=== PATIENT | female | born 1940 | race Caucasian/White ===

== ENCOUNTER 2017-09-19 12:28 | Inpatient (IN) ==
[2017-09-19 13:12] LABS: Basophils # (Auto) 0 K/mcL (0.0-0.3); Basophils % (Auto) 0.4 % (0.0-2.0); Eosinophils # (Auto) 0.2 K/mcL (0.0-0.7); Granulocytes % (Auto) 62.9 % (38.0-78.0); Lymphocytes # (Auto) 3.3 K/mcL (1.5-4.8); Lymphocytes % (Auto) 27.4 % (15.5-49.0); Mean Cell Volume 95.4 fL (80.0-100.0); Mean Corpuscular Hemoglobin 32.4 pg (26.0-34.0); Monocytes # (Auto) 0.9 K/mcL (0.1-0.9); Monocytes % (Auto) 7.3 % (1.0-12.0); Platelet Count 142 K/mcL (140-440); RBC 3.44 M/mcL (4.00-5.20)
--- NOTE | 2017-09-19 13:22 | Emergency Department Note ---
General Adult HPI - General Chief complaint: Shortness of Breath/Dyspnea Stated complaint: Abscess to right side of neck Time Seen by Provider: 09/19/17 13:20 Source: patient Mode of arrival: ambulatory Limitations: no limitations - History of Present Illness HPI Narrative: 76-year-old female presents to the emergency Department today with swelling of the right cheek that began Thursday September 14, 2017. She reports that the area is a small lump and then grew in size by Saturday. She saw Dr. Tommy Lopez and a facial CT was done that showed Sialsis and mild inflammation of the right parotid gland. She was started on amoxicillin and referred to see ENT. She saw Dr. Tamayo, ENT and also has seen a dentist who ruled out dental abscess. Dr. Tamayo attempted an aspiration yesterday, but was not able to aspirate fluid. She began on oral clindamycin and has currently taken 3 doses. She spoke with Dr. Tamayo today after she noticed even more swelling and pain that she was and instructed to go to the emergency department. She denies any fevers or chills. She states that the area is warm to the touch, tender, and her mouth feels dry. She reports that it is slightly difficult to swallow due to the amount of swelling. She denies difficulty breathing, but states that she does have a history of COPD and occasionally feels short of breath. - Related Data Home Medications Medication Instructions Recorded Confirmed Aspirin [[place] Aspirin] 81 mg PO DAILY 09/15/14 09/16/17 Cyanocobalamin (Vitamin B-12) 1,000 mcg SL DAILY 09/15/14 09/16/17 [Vitamin B-12] Fish Oil 2,000 mg PO TID 09/15/14 09/16/17 Vitamin D3 5,000 unit PO MOWEFR@0900 09/15/14 09/16/17 Acetaminophen [Acetaminophen Extra 500 mg PO Q6HP PRN 11/17/15 09/16/17 Strength] Allopurinol [Zyloprim] 200 mg PO DAILY 11/17/15 09/16/17 Bumetanide [Bumex] 1 mg PO DAILY 11/17/15 09/16/17 HYDROcodone/APAP 5/325MG [[place] 1 tab PO BIDP PRN 11/17/15 09/16/17 5-325Mg] LORazepam [Ativan] 0.5 mg PO Q4HP PRN 11/17/15 09/16/17 Mirtazapine [Remeron] 15 mg PO HS 11/17/15 09/16/17 Venlafaxine HCl [Venlafaxine HCl 37.5 mg PO QDAY 11/17/15 09/16/17 ER] Carvedilol [Coreg] 6.25 mg PO BIDCC 07/23/16 09/16/17 Insulin Aspart [Novolog] 5 unit SQ AC 07/23/16 09/16/17 Losartan [Cozaar] 12.5 mg PO DAILY 07/23/16 09/16/17 Omeprazole [Prilosec] 20 mg PO ACB 12/18/16 09/16/17 Insulin Glargine,Hum.rec.anlog 55 unit SQ BID 02/19/17 09/16/17 [Basaglar Kwikpen U-100] Magnesium 143 mg PO DAILY 02/19/17 09/16/17 Donepezil [Aricept] 5 mg PO DAILY 03/13/17 09/16/17 Calcium Adult Gummies 2 tablet PO DAILY 04/23/17 09/16/17 Sennosides [Senna] 8.6 mg PO HS 04/23/17 09/16/17 Allergies Allergy/AdvReac Type Severity Reaction Status Date / Time Aminoglycosides Allergy Severe ITCHING/BLI Verified 09/19/17 12:28 STERS Sulfa (Sulfonamide Allergy Severe Difficulty Verified 09/19/17 12:28 Antibiotics) Breathing [SULFA (SULFONAMIDE ANTIBIOTICS)] quinapril Allergy Intermediate ITCHING Verified 09/19/17 12:28 Streptomycin [STREPTOMYCIN] Allergy Intermediate SWELLING, Verified 09/19/17 12: 28 HEART PALPITATIONS baclofen AdvReac Intermediate Sedation Verified 09/19/17 12:28 risperidone [From RISPERDAL] AdvReac Intermediate PASS OUT Verified 09/19/17 12: 28 Review of Systems Review of Systems: Except as noted in the HPI, a Review of Systems was found to be negative. Specifically: Constitutional: No chronic fatigue, unexplained weight gain, or weight loss. Eyes: No visual impairment, no pain, watering, discharge, or itching. ENT: No ear or sinus infections. No reoccurring nosebleeds, no chronic nasal congestion. Respiratory: No wheezing, dyspnea on exertion, or chronic cough. CV: No chest pain, cyanosis, palpitations, dizziness, or fainting. Musculoskeletal: No muscle pain or weakness, no joint pain or limitations. Neurologic: No headache, weakness, numbness, dizziness, or seizures. Endocrine: No hot or cold intolerances, excessive sweating, excessive thirst, or frequent urination. Hematologic/lymphatic: No blood disorder. No swollen lymph nodes. Integumentary: No problem with rashes, eczema, changing of skin lesions. No nail abnormalities. All systems ED: reviewed and negative except as stated. Past Medical History - Past Medical History Medical history: Reports: arthritis, asthma, CHF, coronary artery disease, DM, GERD, kidney stones, myocardial infarction, renal disease, other (Diverticulitis , chronic constipation, left bundle branch block) Surgical history ED: Reports: non-contributory - Social History smoking status: Never smoker Alcohol use: Reports: Occasionally Drug use: Reports: none Physical Exam Limitations: no limitations General appearance: alert, in no apparent distress ENT: other (Mucous membranes are dry. There is a large firm and tender mass palpated over the right cheek approximately 6 cm x 6 cm mass. The right Parotid gland seen and when pressed with a tongue depressor some small amount of serosanguineous drainage was seen from the parotid gland. Ear canals are clear and tympanic membranes opaque. Trachea midline. No lymphadenopathy. External ear examination normal. No nasal congestion and nasal turbinates are pink without swelling.) Neck: Present: full ROM, trachea midline. Absent: thyromegaly Chest: Present: normal inspection Respiratory: Present: normal lung sounds bilaterally Cardiovascular: Present: regular rate, normal rhythm, +S1, +S2 Extremities: Present: pedal edema (1+ bilateral lower Extremities) Neurological: Present: alert, oriented X3 Psychiatric: Present: normal affect, normal mood Skin: Present: warm, dry, intact, normal color Course Vital Signs Temperature 98.0 F 09/19/17 12:28 Pulse Rate 83 09/19/17 12:28 Respiratory Rate 18 09/19/17 12:28 Blood Pressure 164/101 09/19/17 12:28 Pulse Oximetry (%) 92 09/19/17 12:28 Temperature 98.0 F 09/19/17 12:28 Pulse Rate 70 09/19/17 13:51 Respiratory Rate 18 09/19/17 13:09 Blood Pressure 136/70 09/19/17 13:51 Pulse Oximetry (%) 90 09/19/17 13:51 Medical Decision Making - MDM Narrative Medical decision making narrative: CT scan obtained and spoke with radiologist, Dr. Whitfield did not see an abscess or stone. Spoke with Dr. Tamayo and Dr. Abdalla who both agreed no drainage would be needed at this time and patient would benefit from IV antibiotics and inpatient stay for IV antibiotics and monitoring. Spoke with the hospitalist, and report given to Dr. Saenz. Patient will be admitted to [facility]. - Lab Data Lab results reviewed: Yes I reviewed the patient's lab results. Result diagrams: 09/19/17 12:50 09/19/17 12:50 Lab Results 09/19/17 09/19/17 09/19/17 Range/Units 12:50 12:50 13:27 WBC 12.1 H (4.5-11.0) K/mcL RBC 3.44 L (4.00-5.20) M/mcL Hgb 11.2 L (12.0-15.0) g/dL Hct 32.8 L (36.0-48.0) % POC Hct (36.0-48.0) % MCV 95.4 (80.0-100.0) fL MCH 32.4 (26.0-34.0) pg MCHC 34.0 (31.0-36.0) g/dL RDW 16.0 H (11.5-14.5) % Plt Count 142 (140-440) K/mcL MPV 8.7 (7.4-10.4) fL Gran % 62.9 (38.0-78.0) % Lymph % (Auto) 27.4 (15.5-49.0) % [place] % (Auto) 7.3 (1.0-12.0) % Eos % (Auto) 2.0 (0.0-7.0) % Baso % (Auto) 0.4 (0.0-2.0) % Gran # 7.6 (1.8-8.0) K/mcL Lymph # (Auto) 3.3 (1.5-4.8) K/mcL [place] # (Auto) 0.9 (0.1-0.9) K/mcL Eos # (Auto) 0.2 (0.0-0.7) K/mcL Baso # (Auto) 0 (0.0-0.3) K/mcL VBG Lactic Acid 1.0 (0.5-2.2) mmol/L POC Sodium (133-145) mmol/L Sodium 136 (133-145) mmol/L POC Potassium (3.3-5.1) mmol/L Potassium 3.2 L (3.3-5.1) mmol/L POC Chloride (96-108) mmol/L Chloride 91 L (96-108) mmol/L Carbon Dioxide 33 H (22-30) mmol/L POC Total CO2 (22-30) mmol/L Anion Gap 12.0 (8-16) POC BUN (8-23) mg/dl BUN 28 H (8-23) mg/dl Creatinine 1.5 H (0.6-1.1) mg/dl POC Creatinine (0.6-1.1) mg/dl GFR Calculation 33 Glucose 178 H (70-105) mg/dL POC Glucose (70-105) mg/dL Calcium 9.3 (8.6-10.4) mg/dl POC WB Ioniz Calcium (1.16-1.32) mmol/L Total Bilirubin 0.8 (0.0-1.0) mg/dL AST 24 (0-37) U/l ALT 20 (0-40) U/l Alkaline Phosphatase 86 (39-117) U/L Total Protein 7.1 (5.9-8.4) gm/dL Albumin 3.8 (3.2-5.2) gm/dL Globulin 3.3 (2.2-3.7) gm/dL Albumin/Globulin Ratio 1.2 (1.0-2.3) /10/29 Range/Units 13:27 WBC (4.5-11.0) K/mcL RBC (4.00-5.20) M/mcL Hgb (12.0-15.0) g/dL Hct (36.0-48.0) % POC Hct 29.0 L (36.0-48.0) % MCV (80.0-100.0) fL MCH (26.0-34.0) pg MCHC (31.0-36.0) g/dL RDW (11.5-14.5) % Plt Count (140-440) K/mcL MPV (7.4-10.4) fL Gran % (38.0-78.0) % Lymph % (Auto) (15.5-49.0) % [place] % (Auto) (1.0-12.0) % Eos % (Auto) (0.0-7.0) % Baso % (Auto) (0.0-2.0) % Gran # (1.8-8.0) K/mcL Lymph # (Auto) (1.5-4.8) K/mcL [place] # (Auto) (0.1-0.9) K/mcL Eos # (Auto) (0.0-0.7) K/mcL Baso # (Auto) (0.0-0.3) K/mcL VBG Lactic Acid (0.5-2.2) mmol/L POC Sodium 137 (133-145) mmol/L Sodium (133-145) mmol/L POC Potassium 3.1 L (3.3-5.1) mmol/L Potassium (3.3-5.1) mmol/L POC Chloride 91 L (96-108) mmol/L Chloride (96-108) mmol/L Carbon Dioxide (22-30) mmol/L POC Total CO2 34 H (22-30) mmol/L Anion Gap (8-16) POC BUN 29 H (8-23) mg/dl BUN (8-23) mg/dl Creatinine (0.6-1.1) mg/dl POC Creatinine 1.6 H (0.6-1.1) mg/dl GFR Calculation Glucose (70-105) mg/dL POC Glucose 165 H (70-105) mg/dL Calcium (8.6-10.4) mg/dl POC WB Ioniz Calcium 1.15 L (1.16-1.32) mmol/L Total Bilirubin (0.0-1.0) mg/dL AST (0-37) U/l ALT (0-40) U/l Alkaline Phosphatase (39-117) U/L Total Protein (5.9-8.4) gm/dL Albumin (3.2-5.2) gm/dL Globulin (2.2-3.7) gm/dL Albumin/Globulin Ratio (1.0-2.3) - Radiology Data Radiology results reviewed: Yes I reviewed the patient's radiology results. Disposition Pt seen by CLIENT SERVICES ASSISTANT/PA only: Yes Clinical Impression: Parotitis Disposition: Xfer As Inpt ([facility]) Condition: Fair Referrals: Anjana Hennessy ARNP [Primary Care Provider] -
[2017-09-19] MEDS ORDERED: 0.9 % SODIUM CHLORIDE 1,000 ML IV ONE (13:26)
[2017-09-19 13:34] LABS: ALT/SGPT 20 U/l (0-40); Albumin 3.8 gm/dL (3.2-5.2); Albumin/Globulin Ratio 1.2 (1.0-2.3); Alkaline Phosphatase 86 U/L (39-117); Blood Urea Nitrogen 28 mg/dl (8-23)
--- NOTE | 2017-09-19 14:16 | Cat Scan Report ---
History: Painful lump in the right side of the face and neck. TECHNIQUE: The neck was imaged without contrast from the pituitary sella to the aortic arch without IV contrast. Sagittal and coronal reformats created. Patient has poor renal function. Therefore IV contrast was not administered. IMPRESSION: There is marked enlargement and inflammation in the right parotid gland. Is also inflammation of the surrounding fat. There is no evidence of a mass or abscess in or adjacent to the parotid. The parotid duct is larger than the left but does not appear to be abnormally dilated. There are no stones within the duct. Left parotid gland is replaced with fat. The submandibular glands are nearly symmetric and normal in size. There is a 2 mm calcification along the anterior inferior border of the right submandibular gland. The duct is nondilated. There are a few small lymph nodes in the neck of both sides which are less than 1 cm in size. The oral cavity, pharynx and larynx appear normal. There is no airway compromise. The thyroid is normal in size and homogeneous. Few scattered plaques are seen in the carotid bifurcation bilaterally. Severe disc space narrowing is present at C5-6 and there is moderate narrowing at C3-4. 4 mm grade 1 spondylolisthesis is present at C4-5 due to arthritis in the facets. This is causing low-grade central canal stenosis. IMPRESSION: Right-sided parotiditis Interpreted and Authenticated by: Nolberto Rivas 09/19/17
--- NOTE | 2017-09-19 15:53 | Internal Med History&Physical ---
Medical - H&P: HPI Patient information: Note initiated : 09/19/17 at 3:49 pm Service Date, if different from initiated Date: [] Patient: Samira Wilson a 76 y/o F admitted on for Abscess to right side of neck. Chief Complaint: [] History of present illness: Ms. Wilson is a 76 year old F with history of diabetes and multiple medical issues presents to the emergency room today for evaluation of swelling on the right side of the cheek. According to the patient she noticed swelling on the right side of cheek I believe on Saturday last week got worse on Saturday. She was evaluated for same on Saturday and put on oral antibiotic amoxicillin or Augmentin. The patient's swelling continued to worsen. The pain continued to get worse. Pain was worse with movement throbbing sharp in nature. The patient was seen by ENT specialist, antibiotics were switched to clindamycin orally the patient's swelling continued to get worse. They have been tried to aspirate for any possible abscess however they were unable to see her aspirate anything. Since the patient's swelling continued to get worse on clindamycin patient was advised to come to the emergency room for further evaluation. The patient has some odynophagia, she is weak but denies any shortness of breath or wheezing. There is definitely swelling on the right side of the face but denies any facial weakness. The patient has had exposure to individual with MUMPS, but denies any h/o same, denies any MMR vaccination. she denies any recent known exposure to individual with mumps In the emergency room patient was hemodynamically stable, afebrile blood pressure heart rate stable she was on 2-3 L of oxygen which she uses at home when she sleeps. She denies any history of COPD but notes that she has been given oxygen for use when she sleeps because of her cardiopulmonary status. The patient has elevated WBC count at 12,000, neutrophils are 62%, hemoglobin 11.2, platelets 142. Sodium 136, potassium 3.2 bicarbonate 33 creatinine 1[address] scan of the neck was done without contrast, there was swelling of the parotid gland without any abscess, slight swelling of the parotid duct but no stones. I reviewed the case with the radiologist who felt that an ultrasound will not add any value given that he is certain there is no abscess. Given that the patient's swelling has progressed, she has been outpatient antibiotic therapy she is being admitted to the hospital for further management. All systems: reviewed and no additional remarkable complaints except as stated ( as per HPI rest negative) Medical - H&P: PMH Medical history: HTN HLD DM Afib, s/p pacemaker, AICD Obesity Osteoarthritis OSIRIS with CPAP afib h/o CHF Surgical history: Multiple joint surgery AICD/Pacemaker Family history: reviewed and not pertinent Social history: non smoker, no etoh no recreational substance use Medical - H&P: Meds Home Medications Medication Instructions Recorded Confirmed Type Aspirin [[place] Aspirin] 81 mg PO DAILY 09/15/14 09/19/17 History Cyanocobalamin (Vitamin B-12) 1,000 mcg SL DAILY 09/15/14 09/19/17 History [Vitamin B-12] Fish Oil 2,000 mg PO TID 09/15/14 09/19/17 History Vitamin D3 5,000 unit PO MOWEFR@0900 09/15/14 09/19/17 History Acetaminophen [Acetaminophen Extra 500 mg PO Q6HP PRN 11/17/15 09/19/17 History Strength] Allopurinol [Zyloprim] 200 mg PO DAILY 11/17/15 09/19/17 History Bumetanide [Bumex] 1 mg PO DAILY 11/17/15 09/19/17 History HYDROcodone/APAP 5/325MG [[place] 1 tab PO BIDP PRN 11/17/15 09/19/17 History 5-325Mg] LORazepam [Ativan] 0.5 mg PO Q4HP PRN 11/17/15 09/19/17 History Mirtazapine [Remeron] 15 mg PO HS 11/17/15 09/19/17 History Venlafaxine HCl [Venlafaxine HCl 37.5 mg PO QDAY 11/17/15 09/19/17 History ER] Carvedilol [Coreg] 6.25 mg PO BIDCC 07/23/16 09/19/17 History Insulin Aspart [Novolog] 5 unit SQ AC 07/23/16 09/19/17 History Losartan [Cozaar] 12.5 mg PO DAILY 07/23/16 09/19/17 History Omeprazole [Prilosec] 20 mg PO ACB 12/18/16 09/19/17 History Insulin Glargine,Hum.rec.anlog 55 unit SQ BID 02/19/17 09/19/17 History [[facility] U-100] Magnesium 143 mg PO DAILY 02/19/17 09/19/17 History Donepezil [Aricept] 5 mg PO DAILY 03/13/17 09/19/17 History Calcium Adult Gummies 2 tablet PO DAILY 04/23/17 09/19/17 History Sennosides [Senna] 8.6 mg PO HS 04/23/17 09/19/17 History Allergies Allergy/AdvReac Type Severity Reaction Status Date / Time Aminoglycosides Allergy Severe ITCHING/BLI Verified 09/19/17 12:28 STERS Sulfa (Sulfonamide Allergy Severe Difficulty Verified 09/19/17 12:28 Antibiotics) Breathing [SULFA (SULFONAMIDE ANTIBIOTICS)] quinapril Allergy Intermediate ITCHING Verified 09/19/17 12:28 Streptomycin [STREPTOMYCIN] Allergy Intermediate SWELLING, Verified 09/19/17 12: 28 HEART PALPITATIONS baclofen AdvReac Intermediate Sedation Verified 09/19/17 12:28 risperidone [From RISPERDAL] AdvReac Intermediate PASS OUT Verified 09/19/17 12: 28 Medical - H&P: Exam - Constitutional Vitals: Temp Pulse Resp BP Pulse Ox 98.0 F 64 18 118/72 97 09/19/17 15:34 09/19/17 15:34 09/19/17 15:34 09/19/17 15:34 09/19/17 15:34 Exam: GENERAL: The patient is a well-developed, well-nourished in no apparent distress. Is alert and oriented x3. VITAL SIGNS: Reviewed and as noted elsewhere. HEENT: Head is normocephalic and atraumatic. Extraocular muscles are intact. Pupils are equal, round, and reactive to light. Nares appeared normal. Oral mucosa dry, Right side of the face is swollen, in the angle of the mandible, setending upto the ear, tender to touch firm. no fluctuation. mild erythema noted. Oral mucosa , no faviola duct discharged noted. NECK: Normal to inspection, Supple, No lymphadenopathy or thyromegaly. except as above LUNGS: Air entry equal on both sides, no wheezing, crackles or rhonchi noted. No accessory muscles of respiration HEART: Regular rate and rhythm normal, S1 and S2 heard, no Gallop, S3 or Rub Noted, No Gross murmur heard. ABDOMEN: Soft, nontender, and nondistended. Positive bowel sounds. No hepatosplenomegaly was noted. large pannus EXTREMITIES: No cyanosis, clubbing, rash, lesions or edema. NEUROLOGIC: Cranial nerves II through XII are grossly intact. Motor and Sensory System Grossly Intact PSYCHIATRIC: Normal affect, Normal Mood. Appropriate Behavior. SKIN: No ulceration or wounds noted, No jaundice, No rash noted. Medical - H&P: Reslt - Labs CBC & Chem 7: 09/19/17 12:50 09/19/17 12:50 Labs: Short CBC 09/19/17 Range/Units 12:50 WBC 12.1 H (4.5-11.0) K/mcL Hgb 11.2 L (12.0-15.0) g/dL Hct 32.8 L (36.0-48.0) % Plt Count 142 (140-440) K/mcL BMP 09/19/17 12:50 Sodium 136 Potassium 3.2 L Chloride 91 L Carbon Dioxide 33 H BUN 28 H Creatinine 1.5 H Glucose 178 H Calcium 9.3 Liver Function 09/19/17 Range/Units 12:50 Total Bilirubin 0.8 (0.0-1.0) mg/dL AST 24 (0-37) U/l ALT 20 (0-40) U/l Alkaline Phosphatase 86 (39-117) U/L Albumin 3.8 (3.2-5.2) gm/dL Medical - H&P: A/P - Narrative A/P Narrative: A/P Acute bacterial Parotiditis-patient likely has acute bacterial parotiditis, no evidence of abscess on CT scan. IV vancomycin and Zosyn to be started. She has failed amoxicillin and clindamycin as outpatient. If the patient swelling worsens will repeat the scan preferably an ultrasound to evaluate for any abscess and consider aspiration. She has been seen by ENT in the [place]. At this time given that there is no surgical drainage necessary I will hold off on consulting them. Patient has patent respiratory tract, no significant obstruction of oropharynx noted. There is no stridor on exam. I will consult ENT showed any of this change. The patient has mild leukocytosis with normal neutrophil differentiation, she has not had history of mumps. I will check IgM for mumps Atrial fib- rate controlled, on aicd and pacemaker, no anticoagulation, on asa, conintue same CHF- clinically euvolumic, hold diuretics for now, resume same once patient is stable. HTN- resume home bp medications, monitor bp, DM- resume lantus, 55 units bid, ssi sliding scale. OSIRIS- cpap at night, 3 L oxygen as home dose Hypokalemia- replace CKD- creat near baseline, creat is 1.5 for now, monitor, will maintain good hydration status. DVT hep sq Diet carb consistent Full code.
[2017-09-19] MEDS ORDERED: HYDROmorphone 2 MG/ML VIAL IV PRN (16:16)
[2017-09-19] MEDS ORDERED: ONDANSETRON 4 MG/2 ML VIAL IV PRN (16:16)
[2017-09-19] MEDS ORDERED: VANCOMYCIN PER PHARMACY IV SCH (16:16)
[2017-09-19] MEDS ORDERED: oxyCODONE/APAP 5/325MG TABLET PO PRN (16:16)
[2017-09-19] MEDS ORDERED: NALOXONE HCL 0.4 MG/ML VIAL IV PRN (16:16)
[2017-09-19] MEDS ORDERED: LORazepam 0.5 MG TABLET PO PRN (16:16)
[2017-09-19] MEDS ORDERED: DEXTROSE 50% 50 ML VIAL IV PRN (16:18)
[2017-09-19] MEDS ORDERED: DEXTROSE 31 GM ORAL.SUSP PO PRN (16:18)
[2017-09-19] MEDS ORDERED: POTASSIUM CHLORIDE 40 MEQ in DEXTROSE 5% IN WATER 500 ML IV ONE (17:00)
[2017-09-19] MEDS: INSULIN LISPRO 1 UNIT/0.01 ML UNIT SQ SCH ×2 (17:18→22:10)
[2017-09-19] MEDS: VANCOMYCIN 1,500 MG in 0.9 % SODIUM CHLORIDE 500 ML IV SCH (17:44)
[2017-09-19] MEDS: CARVEDILOL 6.25 MG TABLET PO SCH (17:48)
[2017-09-19] MEDS: ACETAMINOPHEN 325 MG TABLET PO PRN (19:40)
[2017-09-19] MEDS: PIPERACILLIN SODIUM/TAZOBACTAM 3.375 GM in DEXTROSE 5% IN WATER 50 ML IV SCH (19:42)
[2017-09-19] MEDS ORDERED: SENNOSIDES 1 TABLET PO SCH (21:00)
[2017-09-19] MEDS: SENNOSIDES 1 TABLET PO SCH (22:12)
[2017-09-19] MEDS: MIRTAZAPINE 15 MG TABLET PO SCH (22:12)
[2017-09-19] MEDS: FISH OIL 1,000 MG CAPSULE PO SCH (22:12)
[2017-09-19] MEDS: 0.9 % SODIUM CHLORIDE 10 ML SYRINGE IV SCH ×2 (22:15→23:10)
[2017-09-19] MEDS: INSULIN GLARGINE, HUMAN 1 UNIT/0.01 ML SQ SCH (22:21)
[2017-09-20] MEDS: PIPERACILLIN SODIUM/TAZOBACTAM 3.375 GM in DEXTROSE 5% IN WATER 50 ML IV SCH ×5 (00:11→23:11)
[2017-09-20] MEDS: 0.9 % SODIUM CHLORIDE 10 ML SYRINGE IV SCH ×4 (01:01→21:25)
[2017-09-20 06:21] LABS: Basophils # (Auto) 0.1 K/mcL (0.0-0.3); Basophils % (Auto) 0.5 % (0.0-2.0); Eosinophils # (Auto) 0.4 K/mcL (0.0-0.7); Eosinophils % (Auto) 3.5 % (0.0-7.0); Granulocytes % (Auto) 56.7 % (38.0-78.0); Lymphocytes # (Auto) 3.3 K/mcL (1.5-4.8); Lymphocytes % (Auto) 30.9 % (15.5-49.0); Mean Cell Volume 95.6 fL (80.0-100.0); Mean Corpuscular Hemoglobin 32.6 pg (26.0-34.0); Monocytes # (Auto) 0.9 K/mcL (0.1-0.9); Monocytes % (Auto) 8.4 % (1.0-12.0); Platelet Count 129 K/mcL (140-440); RBC 3.06 M/mcL (4.00-5.20); Red Cell Distribution Width 15.8 % (11.5-14.5)
[2017-09-20 06:45] LABS: ALT/SGPT 16 U/l (0-40); Albumin 3.2 gm/dL (3.2-5.2); Albumin/Globulin Ratio 1.1 (1.0-2.3); Alkaline Phosphatase 73 U/L (39-117); Bilirubin,Direct < 0.2 mg/dL (0.0-0.3); Blood Urea Nitrogen 27 mg/dl (8-23); Gamma Glutamyl Transpeptidase 45 U/L (5-36); Uric Acid 7.5 mg/dL (2.5-8.0)
[2017-09-20] MEDS ORDERED: POTASSIUM CHLORIDE 20 MEQ PACKET PO ONE (06:45)
[2017-09-20] MEDS: INSULIN LISPRO 1 UNIT/0.01 ML UNIT SQ SCH ×4 (07:48→21:15)
[2017-09-20] MEDS: CARVEDILOL 6.25 MG TABLET PO SCH ×2 (07:49→17:16)
[2017-09-20] MEDS: OMEPRAZOLE 20 MG CAPSULE PO SCH (07:49)
[2017-09-20] MEDS ORDERED: MAGNESIUM SULFATE 2 GM/50 ML BAG IV ONE (08:00)
[2017-09-20] MEDS: ALLOPURINOL 100 MG TABLET PO SCH (08:54)
[2017-09-20] MEDS: DONEPEZIL 10 MG TABLET PO SCH (08:55)
[2017-09-20] MEDS: VENLAFAXINE 37.5 MG TAB.ER.24H PO SCH (08:55)
[2017-09-20] MEDS: FISH OIL 1,000 MG CAPSULE PO SCH ×3 (08:55→21:07)
[2017-09-20] MEDS: INSULIN GLARGINE, HUMAN 1 UNIT/0.01 ML SQ SCH ×2 (08:56→21:14)
[2017-09-20] MEDS: ASPIRIN 81 MG TAB.CHEW PO SCH (08:56)
[2017-09-20] MEDS: VANCOMYCIN 1,500 MG in 0.9 % SODIUM CHLORIDE 500 ML IV SCH (08:56)
--- NOTE | 2017-09-20 10:13 | Internal Med Progress Note ---
Medical - PN: Subj Patient information: Note initiated : 09/20/17 at 10:09 am Service Date, if different from initiated Date: [] Patient: Samira Wilson a 76 y/o F admitted on 09/19/17 for Abscess to right side of neck. Chief Complaint: [] Interval history: Ms. Wilson is a 76 year old F with history of diabetes and multiple medical issues presents to the emergency room today for evaluation of swelling on the right side of the cheek. According to the patient she noticed swelling on the right side of cheek I believe on Saturday last week got worse on Saturday. She was evaluated for same on Saturday and put on oral antibiotic amoxicillin or Augmentin. The patient's swelling continued to worsen. The pain continued to get worse. Pain was worse with movement throbbing sharp in nature. The patient was seen by ENT specialist, antibiotics were switched to clindamycin orally the patient's swelling continued to get worse. They have been tried to aspirate for any possible abscess however they were unable to see her aspirate anything. Since the patient's swelling continued to get worse on clindamycin patient was advised to come to the emergency room for further evaluation. The patient has some odynophagia, she is weak but denies any shortness of breath or wheezing. There is definitely swelling on the right side of the face but denies any facial weakness. The patient has had exposure to individual with MUMPS, but denies any h/o same, denies any MMR vaccination. she denies any recent known exposure to individual with mumps In the emergency room patient was hemodynamically stable, afebrile blood pressure heart rate stable she was on 2-3 L of oxygen which she uses at home when she sleeps. She denies any history of COPD but notes that she has been given oxygen for use when she sleeps because of her cardiopulmonary status. The patient has elevated WBC count at 12,000, neutrophils are 62%, hemoglobin 11.2, platelets 142. Sodium 136, potassium 3.2 bicarbonate 33 creatinine 1.[address] scan of the neck was done without contrast, there was swelling of the parotid gland without any abscess, slight swelling of the parotid duct but no stones. I reviewed the case with the radiologist who felt that an ultrasound will not add any value given that he is certain there is no abscess. Given that the patient's swelling has progressed, she has been outpatient antibiotic therapy she is being admitted to the hospital for further management. 09/20 , No acute overnight events, patient tolerating p.o. diet well she notes that her pain is much better compared to yesterday swelling is also a bit down. She is able to eat well. Labs are stable no growth the microbiology so far Pertinent ROS: Denies headache, dizziness Denies chest pain, palpitations Denies cough or shortness of breath Denies abdominal pain, nausea or vomiting. - Constitutional Vitals: Vital Signs Temp Pulse Resp BP Pulse Ox 98.3 F 62 18 106/48 91 09/20/17 06:15 09/20/17 03:55 09/20/17 06:15 09/20/17 06:15 09/20/17 06:15 Period Temp Pulse Resp BP Sys/Mcdermott Pulse Ox Last 24 Hr 97.6 F-98.7 F 62-85 12-18 82-164/48-101 89-99 Intake and Output 09/19/17 09/20/17 09/20/17 21:59 05:59 13:59 Intake Total 1550 / 1550 650 / 650 55 / 55 Output Total 500 / 500 Balance 1550 / 1550 650 / 650 -445 / -445 Weight 255 lb Intake & Output: Intake & Output 09/19/17 09/20/17 09/20/17 21:59 05:59 13:59 Intake Total 1550 / 1550 650 / 650 55 / 55 Output Total 500 / 500 Balance 1550 / 1550 650 / 650 -445 / -445 Weight 255 lb Intake: IV 1550 / 1550 50 / 50 55 / 55 Sodium Chloride 0.9% 1,000 ml @ 1000 / 1000 Wide Open IV [facility] Rx#: [id number] Zosyn 3.375 gm In Dextrose 5% 50 / 50 50 / 50 5 / 5 in Water 50 ml @ 100 mls/hr IV Q6H [facility] Rx#:[id number] Vancomycin 1,500 mg In Sodium 500 / 500 Chloride 0.9% 500 ml @ 333.3 mls/hr IV DAILY [facility] Rx#: [id number] Oral 600 / 600 Output: Void Amount 500 / 500 Other: Meal Dinner Percent of Meal Consumed 100% Feeding Ability Independent # Voids 1 Exam: Constitutional; Afebrile, cooperative, alert, not in distress. Right side face still swollen, less tender to palpation ORal mucosa moist, able to visualize the duct today, no pus noted Respiratory system: Air Entry equal on both sides, No crackles or wheezing, no rhonchi. CVS- Rate rhythm regular, S1,S2 heard, no gallop, no rub. 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 Medical - PN: Obj Da - Labs CBC & Chem 7: 09/20/17 05:55 09/20/17 05:55 Labs: Abnormal Lab Results 09/20/17 09/20/17 09/19/17 05:55 05:55 13:27 WBC RBC 3.06 L Hgb 10.0 L Hct 29.3 L POC Hct 29.0 L RDW 15.8 H Plt Count 129 L POC Potassium 3.1 L Potassium POC Chloride 91 L Chloride Carbon Dioxide 32 H POC Total CO2 34 H POC BUN 29 H BUN 27 H Creatinine 1.6 H POC Creatinine 1.6 H Glucose 126 H POC Glucose 165 H POC WB Ioniz Calcium 1.15 L Magnesium 1.4 L GGT 45 H Lactate Dehydrogenase 258 H 09/19/17 09/19/17 12:50 12:50 WBC 12.1 H RBC 3.44 L Hgb 11.2 L Hct 32.8 L POC Hct RDW 16.0 H Plt Count POC Potassium Potassium 3.2 L POC Chloride Chloride 91 L Carbon Dioxide 33 H POC Total CO2 POC BUN BUN 28 H Creatinine 1.5 H POC Creatinine Glucose 178 H POC Glucose POC WB Ioniz Calcium Magnesium GGT Lactate Dehydrogenase Meds: Medications Acetaminophen (Tylenol) 650 mg PO Q6HP PRN PRN Reason: PAIN/FEVER > 101 Last Admin: 09/19/17 19:40 Dose: 650 mg Allopurinol (Zyloprim) 200 mg PO DAILY [facility] Last Admin: 09/20/17 08:54 Dose: 200 mg Aspirin (Aspirin) 81 mg PO DAILY [facility] Last Admin: 09/20/17 08:56 Dose: 81 mg Carvedilol (Coreg) 6.25 mg PO BIDCC [facility] Last Admin: 09/20/17 07:49 Dose: 6.25 mg Dextrose (Dextrose 50%) 0 ml IV UD PRN PRN Reason: Hypoglycemia Diagnostic Test (Pha) (Accu-Chek) 1 each FS ACHS [facility] Last Admin: 09/20/17 07:48 Dose: 1 each Donepezil HCl (Aricept) 5 mg PO DAILY [facility] Last Admin: 09/20/17 08:55 Dose: 5 mg Fish Oil (Fish Oil) 2,000 mg PO TID [facility] Last Admin: 09/20/17 08:55 Dose: 2,000 mg Glucose (Insta-Glucose) 15 gm PO PRN PRN PRN Reason: Hypoglycemia Hydromorphone HCl (Dilaudid) 0.5 mg IV Q2HP PRN PRN Reason: PAIN LEVEL > 6 Piperacillin Sod/Tazobactam (Sod 3.375 gm/ Dextrose) 50 mls @ 100 mls/hr IV Q6H [facility] Last Infusion: 09/20/17 06:07 Dose: 0 mls/hr Vancomycin HCl 1,500 mg/ (Sodium Chloride) 500 mls @ 333.3 mls/hr IV DAILY [facility] Last Admin: 09/20/17 08:56 Dose: 333.3 mls/hr Insulin Glargine (Lantus) 55 unit SQ BID [facility] Last Admin: 09/20/17 08:56 Dose: 52 unit Insulin Human Lispro (Humalog) 0 unit SQ ACHS [facility]; Protocol Last Admin: 09/20/17 07:48 Dose: Not Given Lorazepam (Ativan) 0.5 mg PO Q4HP PRN PRN Reason: Anxiety Mirtazapine (Remeron) 15 mg PO HS [facility] Last Admin: 09/19/17 22:12 Dose: 15 mg Naloxone HCl (Narcan) 0.1 mg IV Q2MIN PRN PRN Reason: Opiate Reversal Omeprazole (Prilosec) 20 mg PO ACB [facility] Last Admin: 09/20/17 07:49 Dose: 20 mg Ondansetron HCl (Zofran) 4 mg IV Q6HP PRN PRN Reason: Nausea And Vomiting Oxycodone/Acetaminophen (Percocet 5-325 Mg) 1 tab PO Q4HP PRN PRN Reason: PAIN LEVEL 3-6 Last Admin: 09/19/17 17:49 Dose: 1 tab Senna (Senokot) 2 tab PO HS [facility] Last Admin: 09/19/17 22:12 Dose: 2 tab Sodium Chloride (Saline Flush) 10 ml IV Q8 [facility] Last Admin: 09/20/17 06:04 Dose: 10 ml Vancomycin HCl (Vancomycin Per Pharmacy) 1 order IV UD [facility] Venlafaxine HCl (Effexor Xr) 37.5 mg PO QDAY [facility] Last Admin: 09/20/17 08:55 Dose: 37.5 mg Medical - PN: A/P - Time Spent With Patient Total time spent is greater than 50% in coordination of care (as documented) at patient's floor/unit and/or counseling patient: - Narrative A/P Narrative: A/P Acute bacterial Parotiditis-Responded well to vanco and zosyn, continue for 1 more day, if microbiology is neg, plan for D/c in AM, tolerating po diet well Atrial fib- rate controlled, on aicd and pacemaker, no anticoagulation, on asa, continue same CHF- clinically euvolumic, hold diuretics for now, resume same once patient is stable. HTN- resume home bp medications, bp stable DM- resume lantus, 55 units bid, ssi sliding scale. OSIRIS- cpap at night, 3 L oxygen as home dose Hypokalemia- replace, K better today, continue to monitor Hypomagnesemia- replace IV mag supphate CKD- creat near baseline, creat is 1.6 for now, monitor, will maintain good hydration status. DVT hep sq Diet carb consistent Full code. Medical - PN: Qual - Stroke Symptom Onset Unknown: No - VTE Deep Vein Thrombosis/Pulmonary Embolism Present on Admission: No
[2017-09-20] MEDS: ACETAMINOPHEN 325 MG TABLET PO PRN (14:23)
[2017-09-20] MEDS: SENNOSIDES 1 TABLET PO SCH (21:06)
[2017-09-20] MEDS: MIRTAZAPINE 15 MG TABLET PO SCH (21:07)
[2017-09-21] MEDS: PIPERACILLIN SODIUM/TAZOBACTAM 3.375 GM in DEXTROSE 5% IN WATER 50 ML IV SCH ×3 (05:17→17:11)
[2017-09-21] MEDS: 0.9 % SODIUM CHLORIDE 10 ML SYRINGE IV SCH ×2 (05:19→14:27)
[2017-09-21 05:46] LABS: Basophils # (Auto) 0 K/mcL (0.0-0.3); Basophils % (Auto) 0.6 % (0.0-2.0); Eosinophils # (Auto) 0.4 K/mcL (0.0-0.7); Eosinophils % (Auto) 4.6 % (0.0-7.0); Granulocytes % (Auto) 56.4 % (38.0-78.0); Lymphocytes # (Auto) 2.5 K/mcL (1.5-4.8); Lymphocytes % (Auto) 30.2 % (15.5-49.0); Mean Cell Volume 95.5 fL (80.0-100.0); Mean Corpuscular HGB Conc 33.3 g/dL (31.0-36.0); Mean Corpuscular Hemoglobin 31.8 pg (26.0-34.0); Monocytes # (Auto) 0.7 K/mcL (0.1-0.9); Monocytes % (Auto) 8.2 % (1.0-12.0); Platelet Count 132 K/mcL (140-440); RBC 2.89 M/mcL (4.00-5.20); Red Cell Distribution Width 15.9 % (11.5-14.5)
[2017-09-21 06:13] LABS: ALT/SGPT 16 U/l (0-40); Albumin 3.2 gm/dL (3.2-5.2); Albumin/Globulin Ratio 1.2 (1.0-2.3); Alkaline Phosphatase 72 U/L (39-117); Bilirubin,Direct < 0.2 mg/dL (0.0-0.3); Blood Urea Nitrogen 22 mg/dl (8-23); Gamma Glutamyl Transpeptidase 45 U/L (5-36); Uric Acid 5.7 mg/dL (2.5-8.0)
[2017-09-21] MEDS: ACETAMINOPHEN 325 MG TABLET PO PRN (07:06)
[2017-09-21] MEDS: OMEPRAZOLE 20 MG CAPSULE PO SCH (07:06)
[2017-09-21] MEDS: CARVEDILOL 6.25 MG TABLET PO SCH ×2 (07:06→17:11)
[2017-09-21] MEDS: INSULIN LISPRO 1 UNIT/0.01 ML UNIT SQ SCH ×4 (07:07→21:46)
[2017-09-21] MEDS ORDERED: BISACODYL 10 MG SUPP.RECT PR PRN (07:08)
[2017-09-21] MEDS ORDERED: MAGNESIUM HYDROXIDE 30 ML ORAL.SUSP PO PRN (07:08)
[2017-09-21] MEDS ORDERED: FLEETS ADULT ENEMA PR PRN (07:08)
[2017-09-21] MEDS: FISH OIL 1,000 MG CAPSULE PO SCH ×3 (08:28→21:45)
[2017-09-21] MEDS: ALLOPURINOL 100 MG TABLET PO SCH (08:28)
[2017-09-21] MEDS: ASPIRIN 81 MG TAB.CHEW PO SCH (08:28)
[2017-09-21] MEDS: DOCUSATE SODIUM 100 MG CAPSULE PO SCH ×2 (08:29→21:47)
[2017-09-21] MEDS: INSULIN GLARGINE, HUMAN 1 UNIT/0.01 ML SQ SCH ×2 (08:29→21:47)
[2017-09-21] MEDS: DONEPEZIL 10 MG TABLET PO SCH (08:29)
[2017-09-21] MEDS: VENLAFAXINE 37.5 MG TAB.ER.24H PO SCH (08:29)
[2017-09-21] MEDS: VANCOMYCIN 1,000 MG in 0.9 % SODIUM CHLORIDE 250 ML IV SCH (09:57)
[2017-09-21] MEDS: VANCOMYCIN 1,500 MG in 0.9 % SODIUM CHLORIDE 500 ML IV SCH (10:03)
--- NOTE | 2017-09-21 10:35 | Internal Med Progress Note ---
Medical - PN: Subj Patient information: Note initiated : 09/21/17 at 10:33 am Service Date, if different from initiated Date: [] Patient: Samira Wilson a 76 y/o F admitted on 09/19/17 for Abscess to Rt Side of Neck/Bacterial Parotiditis. Chief Complaint: [] Interval history: Ms. Wilson is a 76 year old F with history of diabetes and multiple medical issues presents to the emergency room today for evaluation of swelling on the right side of the cheek. According to the patient she noticed swelling on the right side of cheek I believe on Saturday last week got worse on Saturday. She was evaluated for same on Saturday and put on oral antibiotic amoxicillin or Augmentin. The patient's swelling continued to worsen. The pain continued to get worse. Pain was worse with movement throbbing sharp in nature. The patient was seen by ENT specialist, antibiotics were switched to clindamycin orally the patient's swelling continued to get worse. They have been tried to aspirate for any possible abscess however they were unable to see her aspirate anything. Since the patient's swelling continued to get worse on clindamycin patient was advised to come to the emergency room for further evaluation. The patient has some odynophagia, she is weak but denies any shortness of breath or wheezing. There is definitely swelling on the right side of the face but denies any facial weakness. The patient has had exposure to individual with MUMPS, but denies any h/o same, denies any MMR vaccination. she denies any recent known exposure to individual with mumps In the emergency room patient was hemodynamically stable, afebrile blood pressure heart rate stable she was on 2-3 L of oxygen which she uses at home when she sleeps. She denies any history of COPD but notes that she has been given oxygen for use when she sleeps because of her cardiopulmonary status. The patient has elevated WBC count at 12,000, neutrophils are 62%, hemoglobin 11.2, platelets 142. Sodium 136, potassium 3.2 bicarbonate 33 creatinine 1.[address] scan of the neck was done without contrast, there was swelling of the parotid gland without any abscess, slight swelling of the parotid duct but no stones. I reviewed the case with the radiologist who felt that an ultrasound will not add any value given that he is certain there is no abscess. Given that the patient's swelling has progressed, she has been outpatient antibiotic therapy she is being admitted to the hospital for further management. 09/20 , No acute overnight events, patient tolerating p.o. diet well she notes that her pain is much better compared to yesterday swelling is also a bit down. She is able to eat well. Labs are stable no growth the microbiology so far 09/21 patient seen examined, no acute overnight issues, pt feels her swelling and pain is worse today compared to yesterday, but better compared from admission, to me the swelling is unchnaged pt is able to toleate po diet well labs are stable neg growth on microbiology so far. Pertinent ROS: Denies headache, dizziness Denies chest pain, palpitations Denies cough or shortness of breath Denies abdominal pain, nausea or vomiting. - Constitutional Vitals: Vital Signs Temp Pulse Resp BP Pulse Ox 98 F 64 16 107/59 97 09/21/17 06:56 09/21/17 03:56 09/21/17 06:56 09/21/17 06:56 09/21/17 06:56 Period Temp Pulse Resp BP Sys/Mcdermott Pulse Ox Last 24 Hr 97.3 F-98.9 F 64-68 16-20 107-131/59-77 92-97 Intake and Output 09/20/17 09/21/17 09/21/17 21:59 05:59 13:59 Intake Total 1890 / 1890 850 / 850 1090 / 1090 Output Total 1500 / 1500 1000 / 1000 300 / 300 Balance 390 / 390 -150 / -150 790 / 790 Weight 267 lb 1.6 oz Intake & Output: Intake & Output 09/20/17 09/21/17 09/21/17 21:59 05:59 13:59 Intake Total 1890 / 1890 850 / 850 1090 / 1090 Output Total 1500 / 1500 1000 / 1000 300 / 300 Balance 390 / 390 -150 / -150 790 / 790 Weight 267 lb 1.6 oz Intake: IV 50 / 50 50 / 50 50 / 50 Zosyn 3.375 gm In Dextrose 5% 50 / 50 50 / 50 50 / 50 in Water 50 ml @ 100 mls/hr IV Q6H [facility] Rx#:[id number] Oral 1840 / 1840 800 / 800 1040 / 1040 Output: Void Amount 1500 / 1500 1000 / 1000 300 / 300 Other: Meal Dinner Breakfast Percent of Meal Consumed 100% 100% Feeding Ability Independent Exam: Constitutional; Afebrile, cooperative, alert, not in distress. Eyes- No icterus, , No periorbital swelling Ears- Ext ear normal, hearing normal to conversation. Neck- Midline trachea, supple Respiratory system: Air Entry equal on both sides, No crackles or wheezing, no rhonchi. CVS- Rate rhythm regular, S1,S2 heard, no gallop, no rub. 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 right parotid gland swollen, tender,no fluctuation. Medical - PN: Obj Da - Labs CBC & Chem 7: 09/21/17 04:30 09/21/17 04:30 Labs: Abnormal Lab Results 09/21/17 09/21/17 09/20/17 04:30 04:30 05:55 WBC RBC 2.89 L Hgb 9.2 L Hct 27.6 L POC Hct RDW 15.9 H Plt Count 132 L POC Potassium Potassium POC Chloride Chloride Carbon Dioxide 31 H 32 H POC Total CO2 Anion Gap 7.0 L POC BUN BUN 27 H Creatinine 1.7 H 1.6 H POC Creatinine Glucose 126 H POC Glucose POC WB Ioniz Calcium Magnesium 1.4 L GGT 45 H 45 H Lactate Dehydrogenase 258 H 258 H Total Protein 5.8 L 09/20/17 09/19/17 09/19/17 05:55 13:27 12:50 WBC RBC 3.06 L Hgb 10.0 L Hct 29.3 L POC Hct 29.0 L RDW 15.8 H Plt Count 129 L POC Potassium 3.1 L Potassium 3.2 L POC Chloride 91 L Chloride 91 L Carbon Dioxide 33 H POC Total CO2 34 H Anion Gap POC BUN 29 H BUN 28 H Creatinine 1.5 H POC Creatinine 1.6 H Glucose 178 H POC Glucose 165 H POC WB Ioniz Calcium 1.15 L Magnesium GGT Lactate Dehydrogenase Total Protein 09/19/17 12:50 WBC 12.1 H RBC 3.44 L Hgb 11.2 L Hct 32.8 L POC Hct RDW 16.0 H Plt Count POC Potassium Potassium POC Chloride Chloride Carbon Dioxide POC Total CO2 Anion Gap POC BUN BUN Creatinine POC Creatinine Glucose POC Glucose POC WB Ioniz Calcium Magnesium GGT Lactate Dehydrogenase Total Protein Meds: Medications Acetaminophen (Tylenol) 650 mg PO Q6HP PRN PRN Reason: PAIN/FEVER > 101 Last Admin: 09/21/17 07:06 Dose: 650 mg Allopurinol (Zyloprim) 200 mg PO DAILY [facility] Last Admin: 09/21/17 08:28 Dose: 200 mg Aspirin (Aspirin) 81 mg PO DAILY [facility] Last Admin: 09/21/17 08:28 Dose: 81 mg Bisacodyl (Dulcolax) 10 mg NV Q2-3DAYS PRN PRN Reason: Constipation [facility] Last Admin: 09/21/17 07:06 Dose: 6.25 mg Dextrose (Dextrose 50%) 0 ml IV UD PRN PRN Reason: Hypoglycemia Diagnostic Test (Pha) (Accu-Chek) 1 each FS [facility] Last Admin: 09/21/17 07:06 Dose: 1 each Docusate Sodium (Colace) 100 mg PO BID [facility] Last Admin: 09/21/17 08:29 Dose: 100 mg Donepezil HCl (Aricept) 5 mg PO DAILY [facility] Last Admin: 09/21/17 08:29 Dose: 5 mg Fish Oil (Fish Oil) 2,000 mg PO TID [facility] Last Admin: 09/21/17 08:28 Dose: 2,000 mg Glucose (Insta-Glucose) 15 gm PO PRN PRN PRN Reason: Hypoglycemia Hydromorphone HCl (Dilaudid) 0.5 mg IV Q2HP PRN PRN Reason: PAIN LEVEL > 6 Piperacillin Sod/Tazobactam (Sod 3.375 gm/ Dextrose) 50 mls @ 100 mls/hr IV Q6H [facility] Last Infusion: 09/21/17 06:08 Dose: Infused Vancomycin HCl 1,000 mg/ (Sodium Chloride) 250 mls @ 250 mls/hr IV DAILY [facility] Last Admin: 09/21/17 09:57 Dose: 250 mls/hr Insulin Glargine (Lantus) 52 unit SQ BID [facility] Last Admin: 09/21/17 08:29 Dose: 52 unit Insulin Human Lispro (Humalog) 0 unit SQ [facility]; Protocol Last Admin: 09/21/17 07:07 Dose: Not Given Lorazepam (Ativan) 0.5 mg PO Q4HP PRN PRN Reason: Anxiety Magnesium Hydroxide (Milk Of Magnesia) 30 ml PO DAILYP PRN PRN Reason: Constipation Last Admin: 09/21/17 08:28 Dose: 30 ml Mirtazapine (Remeron) 15 mg PO HS [facility] Last Admin: 09/20/17 21:07 Dose: 15 mg Naloxone HCl (Narcan) 0.1 mg IV Q2MIN PRN PRN Reason: Opiate Reversal Omeprazole (Prilosec) 20 mg PO ACB [facility] Last Admin: 09/21/17 07:06 Dose: 20 mg Ondansetron HCl (Zofran) 4 mg IV Q6HP PRN PRN Reason: Nausea And Vomiting Oxycodone/Acetaminophen (Percocet 5-325 Mg) 1 tab PO Q4HP PRN PRN Reason: PAIN LEVEL 3-6 Last Admin: 09/19/17 17:49 Dose: 1 tab Senna (Senokot) 2 tab PO [facility] Last Admin: 09/20/17 21:06 Dose: 2 tab Sodium Biphosphate/Sodium Phosphate (Fleets Adult) 1 dose NV Q3-4DAYS PRN PRN Reason: Constipation Sodium Chloride (Saline Flush) 10 ml IV Q8 [facility] Last Admin: 09/21/17 05:19 Dose: 10 ml Vancomycin HCl (Vancomycin Per Pharmacy) 1 order IV UD [facility] Venlafaxine HCl (Effexor Xr) 37.5 mg PO QDAY [facility] Last Admin: 09/21/17 08:29 Dose: 37.5 mg Medical - PN: A/P - Time Spent With Patient Total time spent is greater than 50% in coordination of care (as documented) at patient's floor/unit and/or counseling patient: - Narrative A/P Narrative: A/P Acute bacterial Parotiditis-Responded well to vanco and zosyn, continue for now , given worsening status per pt, will monitor for 1 more day, if no improvement or worsening situation tomorrow, will get an ultrasound to evaluate for possible abscess. Atrial fib- rate controlled, on aicd and pacemaker, no anticoagulation, on asa, continue same CHF- clinically euvolemic, resume home diuretics bumex HTN- resume home bp medications, bp stable, resule losartan DM- resume lantus, 55 units bid, ssi sliding scale. OSIRIS- cpap at night, 3 L oxygen as home dose Hypokalemia- replaced, is 3.9 today Hypomagnesemia- replaced, Mg 1.8 today, will repeat a dose. CKD- creat near baseline, , monitor, will maintain good hydration status. DVT hep sq Diet carb consistent Full code. Medical - PN: Qual - Stroke Symptom Onset Unknown: No - VTE Deep Vein Thrombosis/Pulmonary Embolism Present on Admission: No
[2017-09-21] MEDS: LOSARTAN 25 MG TABLET PO SCH (10:55)
[2017-09-21] MEDS: BUMETANIDE 1 MG TABLET PO SCH (10:55)
[2017-09-21] MEDS ORDERED: MAGNESIUM SULFATE 2 GM/50 ML BAG IV ONE (11:00)
[2017-09-21] MEDS: MIRTAZAPINE 15 MG TABLET PO SCH (21:45)
[2017-09-21] MEDS: SENNOSIDES 1 TABLET PO SCH (21:47)
[2017-09-22] MEDS: 0.9 % SODIUM CHLORIDE 10 ML SYRINGE IV SCH ×2 (00:05→06:07)
[2017-09-22] MEDS: PIPERACILLIN SODIUM/TAZOBACTAM 3.375 GM in DEXTROSE 5% IN WATER 50 ML IV SCH ×2 (00:06→06:07)
[2017-09-22 05:25] LABS: Basophils # (Auto) 0 K/mcL (0.0-0.3); Basophils % (Auto) 0.5 % (0.0-2.0); Eosinophils # (Auto) 0.4 K/mcL (0.0-0.7); Eosinophils % (Auto) 4.3 % (0.0-7.0); Granulocytes % (Auto) 55.1 % (38.0-78.0); Lymphocytes # (Auto) 2.8 K/mcL (1.5-4.8); Lymphocytes % (Auto) 32.6 % (15.5-49.0); Mean Cell Volume 95.2 fL (80.0-100.0); Mean Corpuscular HGB Conc 33.1 g/dL (31.0-36.0); Mean Corpuscular Hemoglobin 31.5 pg (26.0-34.0); Monocytes # (Auto) 0.6 K/mcL (0.1-0.9); Monocytes % (Auto) 7.5 % (1.0-12.0); Platelet Count 130 K/mcL (140-440); RBC 2.76 M/mcL (4.00-5.20); Red Cell Distribution Width 16.2 % (11.5-14.5)
[2017-09-22 05:58] LABS: ALT/SGPT 14 U/l (0-40); Albumin/Globulin Ratio 1.1 (1.0-2.3); Alkaline Phosphatase 70 U/L (39-117); Bilirubin,Direct < 0.2 mg/dL (0.0-0.3); Blood Urea Nitrogen 22 mg/dl (8-23); Gamma Glutamyl Transpeptidase 45 U/L (5-36); Uric Acid 5.8 mg/dL (2.5-8.0)
[2017-09-22] MEDS: INSULIN LISPRO 1 UNIT/0.01 ML UNIT SQ SCH ×2 (07:16→11:23)
[2017-09-22] MEDS: OMEPRAZOLE 20 MG CAPSULE PO SCH (07:19)
[2017-09-22] MEDS: CARVEDILOL 6.25 MG TABLET PO SCH (07:19)
[2017-09-22] MEDS: BUMETANIDE 1 MG TABLET PO SCH (08:15)
[2017-09-22] MEDS: ASPIRIN 81 MG TAB.CHEW PO SCH (08:15)
[2017-09-22] MEDS: LOSARTAN 25 MG TABLET PO SCH (08:16)
[2017-09-22] MEDS: DONEPEZIL 10 MG TABLET PO SCH (08:16)
[2017-09-22] MEDS: ALLOPURINOL 100 MG TABLET PO SCH (08:16)
[2017-09-22] MEDS: DOCUSATE SODIUM 100 MG CAPSULE PO SCH (08:17)
[2017-09-22] MEDS: FISH OIL 1,000 MG CAPSULE PO SCH (08:17)
[2017-09-22] MEDS: INSULIN GLARGINE, HUMAN 1 UNIT/0.01 ML SQ SCH (08:17)
[2017-09-22] MEDS: VENLAFAXINE 37.5 MG TAB.ER.24H PO SCH (08:26)
[2017-09-22] MEDS: VANCOMYCIN 1,000 MG in 0.9 % SODIUM CHLORIDE 250 ML IV SCH (08:49)
--- NOTE | 2017-09-22 11:03 | Discharge Summary ---
Medical - DS: Prov Patient information: Note initiated : 09/22/17 at 10:53 am Service Date, if different from initiated Date: [] Patient: Samira Wilson 76 y/o F admitted on 09/19/17 for Abscess to Rt Side of Neck/Bacterial Parotiditis. Chief Complaint: [] Date of admission: 09/19/17 16:09 Discharge date: 09/22/17 Primary care physician: Anjana Hennessy Admitting clinician: Justin Saenz Consults: 09/19/17 14:39 Consult to Physician [CONS] Stat Comment: Consulting Provider: Vick Tamayo Reason For Exam: Physician to Consult 09/19/17 14:50 Consult to Physician [CONS] Stat Comment: Consulting Provider: Justin Saenz Reason For Exam: Physician to Consult Discharging clinician: Justin Saenz Medical - DS: Meds - Discharge Medications Prescriptions: Amoxicillin/Potassium Clav [Augmentin] 875 mg PO Q12H #14 tab Doxycycline Hyclate [Vibramycin] 100 mg PO BID #14 cap Fluconazole [Diflucan] 150 mg PO ONCE PRN #1 tab PRN Reason: Justa infection Active and Home Medications: Home Medications Aspirin [Edgar Aspirin] 81 mg PO DAILY 09/15/14 [History Confirmed Last Taken 09/18/17 22:00] Cyanocobalamin (Vitamin B-12) [Vitamin B-12] 1,000 mcg SL DAILY 09/15/14 [ History Confirmed 09/19/17 Last Taken 09/19/17 09:00] Fish Oil 2,000 mg PO TID 09/15/14 [History Confirmed 09/19/17 Last Taken 17:00] Vitamin D3 5,000 unit PO MOWEFR@0900 09/15/14 [History Confirmed 09/19/17 Last Taken 09/18/17 09:00] Acetaminophen [Acetaminophen Extra Strength] 500 mg PO Q6HP PRN 11/17/15 [ History Confirmed 09/19/17 Last Taken 09/18/17 21:00] Allopurinol [Zyloprim] 200 mg PO DAILY 11/17/15 [History Confirmed 09/19/17 Last Taken 09/19/17 09:00] Bumetanide [Bumex] 1 mg PO DAILY 11/17/15 [History Confirmed 09/19/17 Last Taken 09/19/17 09:00] HYDROcodone/APAP 5/325MG [[place] 5-325Mg] 1 tab PO BIDP PRN 11/17/15 [History Confirmed 09/19/17 Last Taken 06/02/17] LORazepam [Ativan] 0.5 mg PO Q4HP PRN 11/17/15 [History Confirmed 09/19/17 Last Taken 06/02/17] Mirtazapine [Remeron] 15 mg PO HS 11/17/15 [History Confirmed 09/19/17 Last Taken 09/18/17 22:00] Venlafaxine HCl [Venlafaxine HCl ER] 37.5 mg PO QDAY 11/17/15 [History Confirmed 09/19/17 Last Taken 09/19/17 09:00] Carvedilol [Coreg] 6.25 mg PO BIDCC 07/23/16 [History Confirmed 09/19/17 Last Taken 09/19/17 09:00] Insulin Aspart [Novolog] 7 unit SQ AC 07/23/16 [History Confirmed 09/20/17 Last Taken 09/19/17 09:00] Losartan [Cozaar] 12.5 mg PO DAILY 07/23/16 [History Confirmed 09/19/17 Last Taken 09/18/17 22:00] Omeprazole [Prilosec] 20 mg PO ACB 12/18/16 [History Confirmed 09/19/17 Last Taken 09/19/17 09:00] Insulin Glargine,Hum.rec.anlog [Basaglar Kwikpen U-100] 52 unit SQ BID 02/19/17 [History Confirmed 09/20/17 Last Taken 09/19/17 09:00] Magnesium 143 mg PO DAILY 02/19/17 [History Confirmed 09/19/17 Last Taken 22:00] Donepezil [Aricept] 5 mg PO DAILY 03/13/17 [History Confirmed 09/19/17 Last Taken 09/18/17 22:00] Calcium Adult Gummies 2 tablet PO DAILY 04/23/17 [History Confirmed 09/19/17 Last Taken 09/18/17 12:00] Sennosides [Senna] 8.6 mg PO HS 04/23/17 [History Confirmed 09/19/17 Last Taken 09/18/17 22:00] Medical - DS: Hosp Hospital course: Ms. Wilson is a 76 year old F with history of diabetes and multiple medical issues presents to the emergency room today for evaluation of swelling on the right side of the cheek. According to the patient she noticed swelling on the right side of cheek I believe on Saturday last week got worse on Saturday. She was evaluated for same on Saturday and put on oral antibiotic amoxicillin or Augmentin. The patient's swelling continued to worsen. The pain continued to get worse. Pain was worse with movement throbbing sharp in nature. The patient was seen by ENT specialist, antibiotics were switched to clindamycin orally the patient's swelling continued to get worse. They have been tried to aspirate for any possible abscess however they were unable to see her aspirate anything. Since the patient's swelling continued to get worse on clindamycin patient was advised to come to the emergency room for further evaluation. The patient has some odynophagia, she is weak but denies any shortness of breath or wheezing. There is definitely swelling on the right side of the face but denies any facial weakness. The patient has had exposure to individual with MUMPS, but denies any h/o same, denies any MMR vaccination. she denies any recent known exposure to individual with mumps In the emergency room patient was hemodynamically stable, afebrile blood pressure heart rate stable she was on 2-3 L of oxygen which she uses at home when she sleeps. She denies any history of COPD but notes that she has been given oxygen for use when she sleeps because of her cardiopulmonary status. The patient has elevated WBC count at 12,000, neutrophils are 62%, hemoglobin 11.2, platelets 142. Sodium 136, potassium 3.2 bicarbonate 33 creatinine 1.[address] scan of the neck was done without contrast, there was swelling of the parotid gland without any abscess, slight swelling of the parotid duct but no stones. I reviewed the case with the radiologist who felt that an ultrasound will not add any value given that he is certain there is no abscess. Given that the patient's swelling has progressed, she has been outpatient antibiotic therapy she is being admitted to the hospital for further management. Acute parotiditis- Treated with IV vancomycin and zosyn, she received 3 days of iv abx with good clinical response, microbiology neg, CT neg for abscess or st one, patient to be dischargedo n po augmentin and doxycycline. I expect the patient to continue to improve. Anemia- Noted on her labs, hb slowly downtrending, no e/o severe bleed, mild bleedi n the oral mucosa, not enough to explain the drop, likely due to blood draws, and hemodilutional, to be followed by pcp at discharge, hb at discharge is 8.7 patient notes she gets yeast infections when she uses antibiotics, I am giving the patient a single dose of fluconazole should she develop a yeast infection. The rest of the stay in the hospital is unremarkable,at the time of discharge she is ambulating well, tolerating po diet. Discharge diagnosis: acute bacterial parotiditis - Time Spent with Patient Total time spent providing and/or coordinating discharge services: Less than 30 minutes Medical - DS: Exam - Constitutional Vitals: Vital Signs Temp Pulse Pulse Resp BP BP BP 09/22/17 08:05 09/22/17 07:11 98.6 F 20 112/65 09/22/17 04:05 98.9 F 60 18 102/57 09/22/17 04:00 98.8 F 61 18 102/57 09/22/17 00:00 99.0 F 69 16 114/57 09/21/17 22:56 09/21/17 20:00 68 68 18 09/21/17 19:36 98.3 F 68 68 18 142/84 09/21/17 16:00 98.7 F 20 157/76 09/21/17 14:39 98.1 F 71 20 152/54 09/21/17 12:00 98.9 F 20 106/63 Pulse Ox 09/22/17 08:05 93 09/22/17 07:11 96 09/22/17 04:05 09/22/17 04:00 95 09/22/17 00:00 95 09/21/17 22:56 91 09/21/17 20:00 96 09/21/17 19:36 96 09/21/17 16:00 96 09/21/17 14:39 96 09/21/17 12:00 95 Intake and Output 09/21/17 09/22/17 09/22/17 21:59 05:59 13:59 Intake Total 1140 / 1140 50 / 50 2140 / 2140 Output Total 1101 / 1101 1000 / 1000 Balance 39 / 39 50 / 50 1140 / 1140 Intake: IV 100 / 100 50 / 50 300 / 300 Zosyn 3.375 gm In Dextrose 5% 50 / 50 50 / 50 50 / 50 in Water 50 ml @ 100 mls/hr IV Q6H YAZMIN Rx#:[id number] Vancomycin 1,000 mg In Sodium 250 / 250 Chloride 0.9% 250 ml @ 250 mls/ hr IV DAILY YAZMIN Rx#:[id number] Oral 1040 / 1040 1840 / 1840 Output: Void Amount 1100 / 1100 1000 / 1000 # of times incontinent of urine 1 / 1 0 / 0 Other: Meal Dinner Breakfast Percent of Meal Consumed 100% 100% Urine Appearance Clear Clear Urine Color Bright Yellow Bright Yellow Urine Odor Normal Stool Size Large Moderate Stool Color Brown Brown Stool Consistency Liquid Soft Loose # Voids 1 1 1 # Bowel Movements 1 # of times incontinent of 1 Bowels Weight 262 lb Additional comments: Constitutional; Afebrile, cooperative, alert, not in distress. Respiratory system: Air Entry equal on both sides, No crackles or wheezing, no rhonchi. CVS- Rate rhythm regular, S1,S2 heard, no gallop, no rub. 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 Medical - DS: Data Labs on day of discharge: Labs from last 24 hours 09/22/17 09/22/17 04:05 04:05 WBC 8.6 RBC 2.76 L Hgb 8.7 L Hct 26.3 L MCV 95.2 MCH 31.5 MCHC 33.1 RDW 16.2 H Plt Count 130 L MPV 8.4 Gran % 55.1 Lymph % (Auto) 32.6 Patrick % (Auto) 7.5 Eos % (Auto) 4.3 Baso % (Auto) 0.5 Gran # 4.7 Lymph # (Auto) 2.8 Patrick # (Auto) 0.6 Eos # (Auto) 0.4 Baso # (Auto) 0 Sodium 142 Potassium 3.8 Chloride 102 Carbon Dioxide 31 H Anion Gap 9.0 BUN 22 Creatinine 1.7 H GFR Calculation 29 Glucose 99 Uric Acid 5.8 Calcium 9.0 Phosphorus 3.2 Magnesium 1.9 Total Bilirubin 0.3 Direct Bilirubin < 0.2 GGT 45 H AST 21 ALT 14 Alkaline Phosphatase 70 Lactate Dehydrogenase 255 H Total Protein 5.7 L Albumin 3.0 L Globulin 2.7 Albumin/Globulin Ratio 1.1 Triglycerides 158 H Preliminary micro results at discharge 09/19/17 15:57 Blood Culture - Preliminary Blood 09/19/17 15:45 Blood Culture - Preliminary Blood Medical - DS: A/P - Patient/Caregiver Discharge Instructions Activity: increase activity as tolerated Diet: Cardiac, Consistent Carbohydrate Additional Instructions: Please do not take any antibiotic you have at home I am starting you on 2 antibiotics, both to be taken for 7 days, twice daily preferably with food. GO to the ER if pain /fever or worsening of symptoms in the parotid gland. Or any other acute concerning symptom. Follow up with the PCP in 1-2 weeks Take your usual home medications as before, no changes made to your chronic home medication list I am prescribing single dose fluconazole for yeast infection at your request, use this medication only if you develop a yeast infection. - Follow up Plan Follow up with: Anjana Hennessy ARNP [Primary Care Provider] - Disposition: Home, Self-Care Prognosis: Fair Rehab Potential: Fair I certify that the patient requires SNF services: No Overall status at discharge: patient is progressing back to baseline Medical - DS: Qual - VTE Deep Vein Thrombosis/Pulmonary Embolism Present on Admission: No
== END 2017-09-22 12:35 | disposition home or self-care (01) | DRG 155 ==
LOC: ED 12:28 → MEDSUR 16:09
PROVIDERS: ADMIT Internal Medicine; ATTEND Internal Medicine